=== PATIENT | female | born 1940 | race Caucasian/White ===

== ENCOUNTER → 2018-01-31 01:44 | Outpatient (CLI) | payer MEDICARE, OTHER, SELFPAY ==
[2018-01-31 11:23] LABS: ALT 26 U/L (12-78); AST 22 U/L (15-37); Albumin 3.6 g/dL (3.4-5.0); Alkaline Phosphatase 98 U/L (46-116); BUN 21 mg/dL (7-18); Bilirubin, Total 0.8 mg/dL (0.2-1.0); CREATININE 1.15 mg/dL (0.55-1.02); Calcium 8.8 mg/dL (8.5-10.1); Chloride 104 mmol/L (98-107); Cholesterol 189 mg/dL (50-200); Estimated GFR 45.76 (mL/min/1.73m2); Glucose 95 mg/dL (70-100); HDL Cholesterol 56 mg/dL (40-60); LDL CHOLESTEROL 124 mg/dL (<100); Potassium 4.8 mmol/L (3.5-5.1); Sodium 139 mmol/L (136-145); Total Protein 6.8 g/dL (6.4-8.2); Triglyceride 78 mg/dL (30-150)
[2018-02-01 10:53] LABS: CA 125 4 U/mL (0-30)
== END ==
DX: E78.5 Hyperlipidemia, unspecified (principal); I10 Essential (primary) hypertension; K21.9 Gastro-esophageal reflux disease without esophagitis; C56.9 Malignant neoplasm of unspecified ovary
CPT/HCPCS: 36415; 80053; 80061; 83721; 86304

== ENCOUNTER 2019-02-05 01:25 | Outpatient (CLI) | payer MEDICARE, OTHER, SELFPAY ==
[2019-02-05 11:06] LABS: ALT 27 U/L (14-59); AST 23 U/L (15-37); Albumin 3.7 g/dL (3.4-5.0); Alkaline Phosphatase 103 U/L (46-116); Anion Gap 8.8 mmol/L (3-11); BUN 21 mg/dL (7-18); Bilirubin, Total 0.8 mg/dL (0.2-1.0); CO2 27.2 mmol/L (21.0-32.0); CREATININE 1.02 mg/dL (0.55-1.02); Calculated LDL 128 mg/dL; Chloride 105 mmol/L (98-107); Cholesterol 201 mg/dL (50-200); Estimated GFR 52.41 (mL/min/1.73m2); Glucose 98 mg/dL (70-100); HDL Cholesterol 55 mg/dL (40-60); Potassium 4.8 mmol/L (3.5-5.1); Sodium 141 mmol/L (136-145); Triglyceride 90 mg/dL (30-150)
[2019-02-06 11:12] LABS: CA 125 5 U/mL (0-30)
== END 2019-02-05 01:45 ==
DX: C56.9 Malignant neoplasm of unspecified ovary (principal); E78.5 Hyperlipidemia, unspecified; I10 Essential (primary) hypertension; Z98.890 Other specified postprocedural states
CPT/HCPCS: 36415; 80053; 80061; 83721; 86304

== ENCOUNTER 2019-02-22 01:29 | Outpatient (CLI) | payer MEDICARE, OTHER, SELFPAY ==
--- NOTE | 2019-02-22 15:19 | DI.MAMMO_ITS ---
SYMPTOMS/DIAGNOSIS: SCREENING, Z12.39 BILATERAL SCREENING MAMMOGRAM: Mammograms were interpreted according to the usual protocol including computer analysis with CAD system, tomosynthesis and C view imaging. Comparison is made with exams from 2013 through 2018. The breasts are composed of heterogeneously dense fibroglandular tissue, breast density category C. No suspicious masses or suspicious microcalcifications are seen. There has been no significant change. IMPRESSION: Category 1, negative mammogram. Yearly screening mammography is recommended. [facility] ASSESSMENT OF FINDINGS: Negative. Category 1. Patient will receive a letter notifying them of these results. Bi-RADS category C. The breasts are heterogeneously dense, which may obscure small masses.
== END 2019-02-22 01:49 ==
DX: Z12.31 Encounter for screening mammogram for malignant neoplasm of breast (principal)
CPT/HCPCS: 77063; 77067

== ENCOUNTER 2021-10-05 05:51 | Outpatient (CLI) | payer MEDICARE, SELFPAY ==
[2021-10-05 08:53] LABS: ALT 34 U/L (14-59); AST 24 U/L (15-37); Albumin 3.9 g/dL (3.4-5.0); Alkaline Phosphatase 102 U/L (46-116); Anion Gap 8.6 mmol/L (3-11); BUN 22 mg/dL (7-18); Bilirubin, Total 0.9 mg/dL (0.2-1.0); CO2 27.4 mmol/L (21.0-32.0); Calcium 9.3 mg/dL (8.5-10.1); Calculated LDL 118 mg/dL (<100); Chloride 103 mmol/L (98-107); Cholesterol 195 mg/dL (<200); Estimated GFR 53.21 (mL/min/1.73m2); Glucose 150 mg/dL (74-106); HDL Cholesterol 57 mg/dL (40-60); Potassium 4.3 mmol/L (3.5-5.1); Sodium 139 mmol/L (136-145); Total Protein 7.4 g/dL (6.4-8.2); Triglyceride 102 mg/dL (<150)
== END 2021-10-05 05:52 | disposition home or self-care (01) ==
LOC: LBO 05:53
DX: E78.5 Hyperlipidemia, unspecified (principal); I10 Essential (primary) hypertension
CPT/HCPCS: 36415; 80053; 80061

== ENCOUNTER 2022-12-16 01:37 | Outpatient (CLI) | payer MEDICARE, SELFPAY ==
[2022-12-16 13:03] LABS: ALT 25 U/L (14-59); AST 26 U/L (15-37); Albumin 3.7 g/dL (3.4-5.0); Alkaline Phosphatase 87 U/L (46-116); Anion Gap 8.5 mmol/L (3-11); BUN 24 mg/dL (7-18); CO2 27.5 mmol/L (21.0-32.0); CREATININE 1.1 mg/dL (0.55-1.02); Calcium 9.2 mg/dL (8.5-10.1); Calculated LDL 112 mg/dL (<100); Chloride 105 mmol/L (98-107); Cholesterol 187 mg/dL (<200); Estimated GFR 50.17 (mL/min/1.73m2); Glucose 138 mg/dL (74-106); HDL Cholesterol 56 mg/dL (40-60); Potassium 4.8 mmol/L (3.5-5.1); Sodium 141 mmol/L (136-145); Total Protein 7.4 g/dL (6.4-8.2); Triglyceride 98 mg/dL (<150)
[2022-12-16 13:10] LABS: Hemoglobin A1C 6.5 % (<5.7)
== END 2022-12-16 01:38 | disposition home or self-care (01) ==
LOC: LOS 01:38
PROVIDERS: PCP Nurse Practitioner Family; Visit Provider Nurse Practitioner Family
DX: R73.01 Impaired fasting glucose (principal); E78.2 Mixed hyperlipidemia
CPT/HCPCS: 36415; 80053; 80061; 83036

== ENCOUNTER 2023-08-01 12:05 | Observation (INO) | payer MEDICARE, SELFPAY ==
[2023-08-01] VITALS (36 sets, daily range): BP systolic 174–249; BP diastolic 83–150; PULSE 69–91; RESP 12–51; TEMP 36.6–36.8; O2SAT 94–98
--- NOTE | 2023-08-01 12:00 | RT.EKG_ITS ---
APPROVED REPORT Exam: Resting [facility] E HR:74 bpm ECG Measurements Heart Rate 74 AXIS IA 184 P 72 QRSd 108 QRS 75 QT 392 T 79 QTc 435 Conclusion Sinus rhythm...normal P axis, V-rate 60- 99 Low voltage, precordial leads...precordial leads <1.0mV
[2023-08-01 12:36] LABS: Abs Immature Grans 0.03 10^3/uL (0.0-0.06); Absolute Basophil Count 0.05 10^3/uL (0.0-0.2); Absolute Eosinophil Count 0.11 10^3/uL (0.0-0.7); Absolute Lymphocyte Count 1.24 10^3/uL (1.2-3.4); Absolute Monocyte Count 0.48 10^3/uL (0.1-0.8); Absolute Neutrophil Count 6.26 10^3/uL (1.2-6.7); Basophils % 0.6; Eosinophils % 1.3; HCT 39.4 % (36.0-46.0); Immature Grans % 0.4; Lymphocytes % 15.2; MCH 30.4 pg (27.0-33.0); MCV 92 fL (80-95); MPV 10.4 fL (8.0-11.0); Monocytes % 5.9; Neutrophils % 76.6; Platelet Count 238 10^3/uL (130-400); RBC 4.27 10^6/uL (3.93-5.22); RDW 13.4 % (11.7-14.6); RDW-SD 45.6 fL; WBC 8.17 10^3/uL (4.4-10.8)
--- NOTE | 2023-08-01 13:00 | W.ED.GENAD ---
HPI General Mode of arrival: ambulatory. Date/Time Provider Initiated Documentation: 08/01/23 12:25. Limitations to Documentation: no limitations. Information obtained by: patient. HPI Narrative: 83-year-old female with history of hypertension and anxiety, presents with chief complaint of elevated blood pressure. Patient notes she checks her blood pressure regularly and today noted it was significantly elevated with a systolic over 200. She notes associated feeling of lightheadedness. She denies chest pain, pressure or shortness of breath. She denies numbness or tingling. She does note some mild head discomfort which she attributes to the elevated blood pressure. She has no headache at this time. No visual changes. Patient has had no recent medication changes. She has been taking her lisinopril and atenolol as prescribed. Related Data Home Medications Medication Instructions Recorded Confirmed Aspirin 81 mg PO DAILY 09/06/12 08/01/23 cyanocobalamin (vitamin B-12) 500 0.5 tab PO DAILY 09/06/12 08/01/23 mcg tablet (Vitamin B-12) multivitamin (Daily Multi-Vitamin 1 tab PO DAILY 09/06/12 08/01/23 tablet) magnesium oxide 1 tab PO DAILY 01/12/16 08/01/23 lisinopril 20 mg tablet See Rx Instructions .Route 05/01/23 08/01/23 .COMPLEX #90 tabs omeprazole 20 mg tablet,delayed 20 mg PO DAILY #90 tab-caps 05/31/23 08/01/23 release atenolol 50 mg tablet See Rx Instructions .Route 07/21/23 08/01/23 .COMPLEX #90 tabs Previous Rx's Medication Instructions Recorded lisinopril 20 mg tablet See Rx Instructions .Route 05/01/23 .COMPLEX #90 tabs omeprazole 20 mg tablet,delayed 20 mg PO DAILY #90 tab-caps 05/31/23 release atenolol 50 mg tablet See Rx Instructions .Route 07/21/23 .COMPLEX #90 tabs Allergies Allergy/AdvReac Type Severity Reaction Status Date / Time Tetracyclines Allergy Unknown Other (See Verified 08/01/23 12:15 Comment) General Stated Complaint: Dizzy/Sync AMBER: 3 Review of Systems All systems reviewed & are unremarkable except as noted in HPI and below Constitutional Constitutional: Denies fever(s) Neurologic Neurologic: Reports as per HPI Exam Const General: cooperative and no acute distress [facility] Head: normocephalic and atraumatic Mouth: moist mucous membranes Eyes Conjunctivae: normal conjunctivae Sclera: normal sclerae Neck Neck: trachea midline Resp Auscultation: clear to auscultation bilaterally, no rales, no rhonchi and no wheezes Cardio Rate: regular rate and not tachycardic Rhythm: regular rhythm GI Palpation: soft, not firm, no guarding, no masses, not rigid and nontender Skin General skin exam: no rashes or lesions noted Neuro General: patient alert, patient awake and tone normal Extrem General: no edema Psych Appearance: grossly normal Mental Status: mental status grossly normal Course Vital Signs Vital signs: Vital Signs Temperature 36.6 C 08/01/23 12:05 Pulse 79 08/01/23 12:05 Respiratory Rate 18 08/01/23 12:05 Blood Pressure 249/93 H 08/01/23 12:05 Pulse Oximetry 95 08/01/23 12:05 Temperature 36.6 C 08/01/23 12:05 Temperature Source Temporal Artery Scan 08/01/23 12:05 Pulse 79 08/01/23 12:05 Respiratory Rate 18 08/01/23 12:21 Respiratory Effort Normal, Non-Labored 08/01/23 12:21 Respiratory Depth Normal 08/01/23 12:21 Respiratory Pattern Normal 08/01/23 12:21 Blood Pressure 249/93 H 08/01/23 12:05 Pulse Oximetry 95 08/01/23 12:05 Lab/Test Results Lab/Test Results: Laboratory Tests Range/Units 08/01/23 12:20 WBC (4.4-10.8) 10^3/uL 8.17 RBC (3.93-5.22) 10^6/uL 4.27 Hgb (11.2-15.7) g/dL 13.0 Hct (36.0-46.0) % 39.4 MCV (80-95) fL 92 MCH (27.0-33.0) pg 30.4 MCHC (32.0-36.0) % 33.0 RDW (11.7-14.6) % 13.4 Plt Count (130-400) 10^3/uL 238 MPV (8.0-11.0) fL 10.4 Immature Gran % 0.4 Neutrophils % 76.6 Lymphocytes % 15.2 Monocytes % 5.9 Eosinophils % 1.3 Basophils % 0.6 Nucleated RBC % (0.0-0.3) % 0.0 Absolute Neutrophils (1.2-6.7) 10^3/uL 6.26 Absolute Lymphocytes (1.2-3.4) 10^3/uL 1.24 Absolute Monocytes (0.1-0.8) 10^3/uL 0.48 Absolute Eosinophils (0.0-0.7) 10^3/uL 0.11 Absolute Basophils (0.0-0.2) 10^3/uL 0.05 TSH Cancelled Medical Decision Making 1300??83-year-old female with history of anxiety and hypertension, here with elevated blood pressure today. Patient has been compliant with her antihypertensive regimen. She has had some dizziness associated with the elevated blood pressure. She has no chest pain or shortness of breath. She has had some headache but does not currently. No visual changes. Patient is significantly hypertensive here. Screening EKG was reviewed and interpreted by me: Please report, sinus rhythm 74 bpm, normal axis, subtle ST depressions noted laterally V4 to V6. These were present on prior EKG. Plan to check renal function. --Labs reviewed and normal renal function. I spoke with the patient's primary care physician who notes unclear as to why patient is on atenolol specifically. I will initiate treatment with metoprolol and give additional dose of lisinopril. -- Patient reassessed and does note some anxiety. I will give Ativan 0.5 mg IV. --Patient reassessed remains hypertensive. She continues to have intermittent dizziness. Labetalol 20 mg IV administered. 1600 --patient reassessed: Patient notes dizziness has improved. Patient seems mildly confused. She remains severely hypertensive despite labetalol and oral medications and anxiolytic. I will obtain CT of the head. Plan for admission to treat for hypertensive urgency. 1748 --chest x-ray interpreted by radiology: No acute pulmonary findings. CT of the head interpreted by radiology: No acute intracranial process. Patient remains hypertensive. I will give hydralazine 10 mg IV. I spoke with on-call hospitalist, Dr. Carmona, discussed ED presentation and course, she will admit the patient. Quality:SDOH Health Related Social Needs: No Data to Display PFSH All Active Problems (Updated 08/01/23 @ 17:49 by Rony Lynch MD) Hypertensive urgency (Acute) Hypertensive urgency (Acute) Anxiety (Chronic) Diabetes (Chronic) Vitamin D deficiency (Acute) Grief counseling (Acute) Advanced directives, counseling/discussion (Acute) 09/2021 - States she has. We do not have on file. She is unable to articulate what is in her directive. Has been asked on numerous occasions to bring in a copy. States Maribel Toledo is her person Essential hypertension (Chronic 09/27/13) Gastroesophageal reflux disease (Chronic 10/01/12) Neg. 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 Paternal Grandfather , 75 Asthma Maternal Grandmother , 54 No problems noted. Paternal Grandmother , 62 Stroke Brother No problems noted. Son No problems noted. Son No problems noted. Daughter No problems noted. Daughter No problems noted. Social History Smoking/Tobacco Use Status: Never Second Hand Exposure: No Smoking risk assessment performed?: Yes Alcohol Intake: current Alcohol Intake frequency: a few times a month Alcohol type: hard liquor Drug use: Never Substance use type: does not use Counseling provided: none Caregiver/Support person: No Household members: spouse Housing: house Communication Needs: None Do you need help understanding health information?: Rarely Pets and animals: Yes Pets and animals: cat(s) Sexually active: No Do you think of yourself as: straight/heterosexual Current gender identity: female What is your relationship status?: How often do you talk on the phone with friends or family?: three or more times per week How often do you get together with friends or relatives?: once per week How often do you attend episcopalian or confucianism services?: decline to answer Do you belong to any clubs or organized social groups?: no Panel score (0-1 are the most socially isolated patients): 2 What type of physical activity do you participate in: other Details: chores Duration: 60-90 minutes/day Frequency: daily Niurka/Mu-Ism: Restorationism Special niurka needs: No Seatbelt use: always Drive intox or ride w/intox patient transportation driver: No Do you feel safe at home: Yes Do you feel safe in your relationship?: Yes Additional Social history: been for 63years lives with . Sony RN 08/01/23 Discharge Plan Disposition Patient Disposition: Admit to [facility] Condition: Serious Discharge Details Chief Complaint: Dizzy/Sync Clinical Impression: Hypertensive urgency Primary Care Provider: Brannon Rico ED Provider: Rony Lynch Home Meds and New Rx's Prescriptions: No Action ASPIRIN 81 MG tablet 81 mg PO DAILY multivitamin [Daily Multi-Vitamin] 1 EACH tablet 1 tab PO DAILY cyanocobalamin (vitamin B-12) [Vitamin B-12] 500 MCG tablet 0.5 tab PO DAILY magnesium oxide 250 MG tablet 1 tab PO DAILY lisinopril 20 mg tablet See Rx Instructions .ROUTE .COMPLEX Qty: 90 4RF Dose Instruction: TAKE 1 TABLET BY MOUTH DAILY Rx Instructions: TAKE 1 TABLET BY MOUTH DAILY omeprazole 20 mg tablet,delayed release (DR/EC) 20 mg PO DAILY Qty: 90 4RF atenolol 50 mg tablet See Rx Instructions .ROUTE .COMPLEX Qty: 90 3RF Dose Instruction: TAKE 1 TABLET BY MOUTH DAILY Rx Instructions: TAKE 1 TABLET BY MOUTH DAILY
[2023-08-01 13:04] LABS: ALT 30 U/L (14-59); AST 22 U/L (15-37); Albumin 3.8 g/dL (3.4-5.0); Alkaline Phosphatase 105 U/L (46-116); Anion Gap 11.1 mmol/L (3-11); BUN 22 mg/dL (7-18); Bilirubin, Total 0.7 mg/dL (0.2-1.0); CO2 25.9 mmol/L (21.0-32.0); Calcium 9.7 mg/dL (8.5-10.1); Chloride 104 mmol/L (98-107); Glucose 179 mg/dL (74-106); Magnesium 1.8 mg/dL (1.8-2.4); Potassium 3.8 mmol/L (3.5-5.1); Sodium 141 mmol/L (136-145); TSH (W/Ref FT4) 2.59 uIU/mL (0.36-3.74); Total Protein 7.8 g/dL (6.4-8.2); Troponin I < 50 ng/L (< or =60)
[2023-08-01] MEDS: Metoprolol 25 MG TAB PO (13:31)
[2023-08-01] MEDS: Lisinopril 20 MG TAB PO (13:38)
[2023-08-01] MEDS: LORazepam 2 MG/ML VIAL 0.5 MG IVP (14:27)
[2023-08-01] MEDS: Labetalol 100 MG/20 ML VIAL 20 MG IVP (15:13)
--- NOTE | 2023-08-01 16:00 | DI.RAD_ITS ---
Exam(s) XR CHEST 1V IN DI DEPT EXAM: XR CHEST 1V IN DI DEPT CLINICAL HISTORY: htn, dizzy TECHNIQUE: 2D digital imaging was performed of the chest. One image was obtained. An AP view was ob tained. COMPARISON: No exams were available for comparison FINDINGS: MEDIASTINUM: Normal. HEART: Normal. PULMONARY VASCULATURE: Normal. LUNGS: Clear. PLEURAL SPACE: No pleural effusion or pneumothorax. BONE:Within normal limits for the patient's age. OTHER FINDINGS:Normal. IMPRESSION: No acute pulmonary findings. DATA REPOSITORY: RADIATION DOSE DELIVERED:
--- NOTE | 2023-08-01 16:00 | DI.CT_ITS ---
Exam(s) CT HEAD WO EXAM: CT HEAD WO CLINICAL HISTORY: confusion, hypertension. TECHNIQUE: Imaging Protocol: Axial computed tomography images with coronal and sagittal reformatted images were created and reviewed COMPARISON: No exams were available for comparison FINDINGS: Ventricles and Extra axial spaces: Normal in size and morphology for the patient's age. Hemorrhage: None. 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 There are areas of decrea sed attenuation in the white matter most consistent with small vessel ischemic disease. There is no mass effect. Midline shift: None. Brainstem/Cerebellum: Normal. Calvarium: Normal. Visualized Paranasal sinuses/Mastoids: Clear. Soft Tissues: Unremarkable. IMPRESSION: No acute intracranial process. RADIATION DOSE DELIVERED: 656.27mGy.cm Total DLP DATA REPOSITORY: All CT scans at this facility are submitted to the National Radiology Data Registry (NRDR) Dose Index Registry (DIR) with the [employer] (ACR). RADIATION OPTIMIZATION: All CT scans at this facility use at least one of these dose optimization te chniques: automated exposure control; mA and/or kV adjustment per patient size (includes targeted exa ms where dose is matched to clinical indication); or iterative reconstruction.
[2023-08-01 16:10] LABS: Troponin I < 50 ng/L (< or =60)
--- NOTE | 2023-08-01 17:30 | RT.EKG_ITS ---
APPROVED REPORT Exam: Resting ECG Reason for Exam: Back Pain Patient Location: E HR:82 bpm ECG Measurements Heart Rate 82 AXIS HI 189 P 71 QRSd 108 QRS 63 QT 406 T 35 QTc 473 Conclusion Sinus rhythm...normal P axis, V-rate 60- 99 Probable left atrial enlargement...P >50mS, <-0.10mV V1 Low voltage, precordial leads...precordial leads <1.0mV
--- NOTE | 2023-08-01 17:41 | W.PM.HP.N ---
Date of service: 08/01/23 Time of Service: 17:41 Assessment and Plan Assessment and plan (1) Hypertensive urgency: Status: Acute Assessment and plan: Referred to observation. Will monitor blood pressure closely overnight. Lisinopril dose has been increased from 20 mg to 40 mg daily she is receiving IV hydralazine in the emergency department prior to admission. Will add amlodipine 5 mg daily continue atenolol as previously scheduled but consider increasing that dose also if needed. (2) Anxiety: Status: Chronic Assessment and plan: Received Ativan in the emergency department we will just continue to monitor (3) Gastroesophageal reflux disease: Assessment and plan: Stable continue omeprazole Qualifiers: Esophagitis presence: without esophagitis Qualified Code(s): K21.9 - Gastro-esophageal reflux disease without esophagitis (4) Diabetes: Assessment and plan: Diet controlled with a hemoglobin A1c of 6.5 PCP following and made recommended dietary changes including weight loss will defer further outpatient management of her diabetes to her primary care provider discussed with DR mckeon (5) Hypertensive urgency: Status: Acute History of Present Illness History of Present Illness Chief Complaint: elevated blood pressure Narrative: This is an 83-year-old female patient with a history of hypertension and anxiety who presented to the emergency department with complaints of elevated blood pressure. She reports today her systolic was over 200 and that she was feeling lightheaded she did not have any chest pain shortness of breath numbness or tingling. She was reported to have some confusion. She has been taking her medications as prescribed. Of note in her last office visit her blood pressure was also noted to be elevated at 189/95. Her workup in the emergency department showed normal EKG with no ischemic changes, troponin negative normal head CT with no acute intracranial process no electrolyte abnormalities creatinine 1.0 with a BUN of 22 liver functions within normal limits TSH 2.59 she was given multiple medications to help try the bring her blood pressure down including Metroprolol tartrate labetalol and extra dose of lisinopril, Ativan with no significant improvement in her symptoms. After receiving all those medications blood pressure still 174/84. Hospitalist service was requested to admit her observation for hypertensive urgency in the setting of poorly controlled blood pressure and confusion. Review of Systems All systems reviewed & are unremarkable except as noted in HPI and below PFSH All Active Problems (Updated 08/04/23 @ 00:04 by NATHANAEL SHIPLEY) Hypertensive urgency (Acute) Hypertensive urgency (Acute) Anxiety (Chronic) Vitamin D deficiency (Acute) Grief counseling (Acute) Advanced directives, counseling/discussion (Acute) 09/2021 - States she has. We do not have on file. She is unable to articulate what is in her directive. Has been asked on numerous occasions to bring in a copy. 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 Paternal Grandfather , 75 Asthma Maternal Grandmother , 54 No problems noted. Paternal Grandmother , 62 Stroke Brother No problems noted. Son No problems noted. Son No problems noted. Daughter No problems noted. Daughter No problems noted. Social History Smoking/Tobacco Use Status: Never Second Hand Exposure: No Smoking risk assessment performed?: Yes Alcohol Intake: current Alcohol Intake frequency: a few times a month Alcohol type: hard liquor Drug use: Never Substance use type: does not use Counseling provided: none Caregiver/Support person: No Household members: spouse Housing: house Communication Needs: None Do you need help understanding health information?: Rarely Pets and animals: Yes Pets and animals: cat(s) Sexually active: No Do you think of yourself as: straight/heterosexual Current gender identity: female What is your relationship status?: How often do you talk on the phone with friends or family?: three or more times per week How often do you get together with friends or relatives?: once per week How often do you attend pentecostalism or restorationism services?: decline to answer Do you belong to any clubs or organized social groups?: no Panel score (0-1 are the most socially isolated patients): 2 What type of physical activity do you participate in: other Details: chores Duration: 60-90 minutes/day Frequency: daily Niurka/Catholic: Zoroastrianism Special niurka needs: No Seatbelt use: always Drive intox 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 Sony RN 08/01/23 Meds Allergies and Home Medications Allergies Allergy/AdvReac Type Severity Reaction Status Date / Time Tetracyclines Allergy Unknown Other (See Verified 08/01/23 12:15 Comment) Home Medications Medication Instructions Recorded Confirmed Type Aspirin 81 mg PO DAILY 09/06/12 08/01/23 History cyanocobalamin (vitamin B-12) 500 0.5 tab PO DAILY 09/06/12 08/01/23 History mcg tablet (Vitamin B-12) multivitamin (Daily Multi-Vitamin 1 tab PO DAILY 09/06/12 08/01/23 History tablet) magnesium oxide 1 tab PO DAILY 01/12/16 08/01/23 History atenolol 50 mg tablet See Rx Instructions .Route 07/21/23 08/01/23 Rx .COMPLEX #90 tabs omeprazole 20 mg capsule,delayed 20 mg PO DAILY 08/02/23 08/02/23 History release amlodipine 5 mg tablet 5 mg PO DAILY #30 tabs 08/03/23 Rx lisinopril 20 mg tablet 40 mg (2 x 20 mg) PO DAILY #60 tabs 08/03/23 Rx spironolactone 25 mg tablet 25 mg PO DAILY #30 tabs 08/03/23 Rx Exam Const General: cooperative, healthy appearing, comfortable and no acute distress Nutritional Appearance: average body habitus Orientation: alert and awake HENMO Head: normal to inspection, normocephalic and atraumatic Face and sinus: normal facial exam Mouth: oral mucosae normal Chest Chest: normal inspection of the chest Resp Effort & Inspection: normal respiratory effort Auscultation: clear to auscultation bilaterally Cardio Rate: regular rate Rhythm: regular rhythm GI Inspection: normal to inspection Palpation: soft Neuro General: patient alert, patient awake and oriented (suspect mild cognitive impairment) Patient Orientation: Person and Place Sensory Exam: no sensory deficits noted Extrem General: pedal edema (at baseline) Results Labs 08/03/23 05:43 08/03/23 05:43 Labs: Laboratory Results - last 24 hr 08/01/23 08/01/23 08/01/23 12:00 12:20 12:20 WBC 8.17 RBC 4.27 Hgb 13.0 Hct 39.4 MCV 92 MCH 30.4 MCHC 33.0 RDW 13.4 Plt Count 238 MPV 10.4 Immature Gran % 0.4 Neutrophils % 76.6 Lymphocytes % 15.2 Monocytes % 5.9 Eosinophils % 1.3 Basophils % 0.6 Nucleated RBC % 0.0 Absolute Neutrophils 6.26 Absolute Lymphocytes 1.24 Absolute Monocytes 0.48 Absolute Eosinophils 0.11 Absolute Basophils 0.05 APTT 23.0 L Sodium 141 Potassium 3.8 Chloride 104 Carbon Dioxide 25.9 Anion Gap 11.1 H BUN 22 H Creatinine 1.0 Est GFR (CKD-EPI 2020) 55.90 Glucose 179 H Calcium 9.7 Magnesium 1.8 Total Bilirubin 0.7 AST 22 ALT 30 Alkaline Phosphatase 105 Troponin I < 50 Total Protein 7.8 Albumin 3.8 TSH 2.59 Cancelled 08/01/23 15:45 WBC RBC Hgb Hct MCV MCH MCHC RDW Plt Count MPV Immature Gran % Neutrophils % Lymphocytes % Monocytes % Eosinophils % Basophils % Nucleated RBC % Absolute Neutrophils Absolute Lymphocytes Absolute Monocytes Absolute Eosinophils Absolute Basophils APTT Sodium Potassium Chloride Carbon Dioxide Anion Gap BUN Creatinine Est GFR (CKD-EPI 2020) Glucose Calcium Magnesium Total Bilirubin AST ALT Alkaline Phosphatase Troponin I < 50 Total Protein Albumin TSH Last Vital Signs Temp 36.6 C 08/01/23 12:05 Pulse 77 08/01/23 15:20 Resp 51 H 08/01/23 15:20 BP 174/84 H 08/01/23 15:20 Pulse Ox 98 08/01/23 15:20 Time Spent Time spent with Patient: 40-54 minutes Time was spent: preparing to see the patient(eg.review tests), obtaining and/or reviewing separately otained hiistory, ordering medications,tests, procedures, indepentently interpreting results and counseling the patient
[2023-08-01] MEDS: hydrALAZINE 20 MG/ML VIAL 10 MG IVP (17:42)
[2023-08-01] MEDS: amLODIPine 5 MG TAB PO (17:56)
--- NOTE | 2023-08-01 18:45 | NUR.NOTE ---
Nursing Note: Patient arrived to the unit 18:30 and denies discomfort, pain, and dizziness. Patient reported feeling well and was eating a sandwich. Patient was accompanied by a visitor. Oriented the patient to the room, safety precautions, and the call choe.
[2023-08-01] MEDS: Acetaminophen 325 MG TAB 650 MG PO (19:52)
[2023-08-01] MEDS: Normal Saline Flush 10 ML SYR IVP (20:09)
[2023-08-01] MEDS: Melatonin 3 MG TAB PO (21:23)
[2023-08-02] VITALS (11 sets, daily range): BP systolic 163–206; BP diastolic 77–102; PULSE 72–81; RESP 16–20; TEMP 36.4–37.1; O2SAT 93–97
[2023-08-02 06:50] LABS: Abs Immature Grans 0.03 10^3/uL (0.0-0.06); Absolute Basophil Count 0.05 10^3/uL (0.0-0.2); Absolute Eosinophil Count 0.13 10^3/uL (0.0-0.7); Absolute Lymphocyte Count 1.57 10^3/uL (1.2-3.4); Absolute Neutrophil Count 5.72 10^3/uL (1.2-6.7); Basophils % 0.6; Eosinophils % 1.6; HCT 36.2 % (36.0-46.0); HGB 11.8 g/dL (11.2-15.7); Immature Grans % 0.4; Lymphocytes % 19.4; MCHC 32.6 % (32.0-36.0); MCV 92 fL (80-95); MPV 10.3 fL (8.0-11.0); Monocytes % 7.4; Neutrophils % 70.6; Platelet Count 220 10^3/uL (130-400); RBC 3.93 10^6/uL (3.93-5.22); RDW 13.4 % (11.7-14.6); RDW-SD 45.7 fL
[2023-08-02 07:12] LABS: Anion Gap 9.9 mmol/L (3-11); BUN 18 mg/dL (7-18); CO2 25.1 mmol/L (21.0-32.0); CREATININE 0.9 mg/dL (0.55-1.02); Calcium 9.5 mg/dL (8.5-10.1); Chloride 106 mmol/L (98-107); Estimated GFR 63.43 (mL/min/1.73m2); Glucose 138 mg/dL (74-106); Sodium 141 mmol/L (136-145)
[2023-08-02] MEDS: amLODIPine 5 MG TAB PO (07:42)
[2023-08-02] MEDS: Lisinopril 20 MG TAB 40 MG PO (07:43)
[2023-08-02] MEDS: Aspirin 81 MG CHEW PO (07:43)
[2023-08-02] MEDS: Atenolol 50 MG TAB PO (07:44)
[2023-08-02] MEDS: Omeprazole 20 MG CAPCR PO (07:44)
[2023-08-02] MEDS: Multivitamin TAB 1 TAB PO (07:44)
[2023-08-02] MEDS: Cyanocobalamin 500 MCG TAB 250 MCG PO (07:44)
[2023-08-02] MEDS: Enoxaparin 40 MG/0.4 ML SYR SC (07:46)
[2023-08-02] MEDS: Normal Saline Flush 10 ML SYR IVP ×2 (07:46→21:08)
--- NOTE | 2023-08-02 09:09 | PDOC.CMIN ---
Date of service: 08/02/23 Time of Service: 09:09 Care Management Initial Assmt Initial Assessment REASON FOR HOSPITALIZATION:: hypertensive emergency PREVIOUS FUNCTIONAL STATUS/SOCIAL/FAMILY SUPPORTS:: Pema lives in a large single family home in [place], [place] with her Sher. They have 4 children, 6 grandchildren and 8 great grandchildren, most of whom live in [place]. Pema does not receive any community services nor does she normally use any assistive devices for ambulation. She is currently using a cane as she gets dizzy when her blood pressure is really high. CURRENT FUNCTIONAL STATUS:: Pema was sitting up in a chair when CM met with her. She was pleasant and agreeable to conversation. Pema stated that she is feeling better than when she arrived yesterday although her blood pressure remains elevated above her baseline. She informed CM that when it is really high she gets a bad headache and can be light headed or dizzy. Pema does not anticipate needing any new services at discharge. ADVANCE DIRECTIVES:: On file. Sher CHRISTOPHER Has patient been provided with info about the portal/API?: Yes Did the patient sign up for the portal?: No CODE STATUS:: Full Code INSURANCE COVERAGE / FINANCIAL ISSUES:: Medicare worth CURRENT HOME/COMMUNITY SERVICES/EQUIPMENT:: cane PRIMARY CARE PHYSICIAN:: Brannon Powell POTENTIAL DISCHARGE NEEDS:: follow up with PCP and plan of care PATIENT/FAMILY EDUCATION NEEDS:: +Review of discharge instructions. activity, limitations, follow up plan, discuss Ask Me Three TRANSPORTATION:: via private vehicle PLAN:: Anticipate Pema will be discharged home with no new services. She will follow up with her community providers and plan of care and transport with family. CM will follow and continue to assess for discharge needs. PFSH All Active Problems (Updated 08/01/23 @ 17:49 by Rony Lynch MD) Hypertensive urgency (Acute) Hypertensive urgency (Acute) Anxiety (Chronic) Diabetes (Chronic) Vitamin D deficiency (Acute) Grief counseling (Acute) Advanced directives, counseling/discussion (Acute) 09/2021 - States she has. We do not have on file. She is unable to articulate what is in her directive. Has been asked on numerous occasions to bring in a copy. States Maribel Toledo is her person Essential hypertension (Chronic 09/27/13) Gastroesophageal reflux disease (Chronic 10/01/12) Neg. 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 Paternal Grandfather , 75 Asthma Maternal Grandmother , 54 No problems noted. Paternal Grandmother , 62 Stroke Brother No problems noted. Son No problems noted. Son No problems noted. Daughter No problems noted. Daughter No problems noted. Social History Smoking/Tobacco Use Status: Never Second Hand Exposure: No Smoking risk assessment performed?: Yes Alcohol Intake: current Alcohol Intake frequency: a few times a month Alcohol type: hard liquor Drug use: Never Substance use type: does not use Counseling provided: none Caregiver/Support person: No Household members: spouse Housing: house Communication Needs: None Do you need help understanding health information?: Rarely Pets and animals: Yes Pets and animals: cat(s) Sexually active: No Do you think of yourself as: straight/heterosexual Current gender identity: female What is your relationship status?: How often do you talk on the phone with friends or family?: three or more times per week How often do you get together with friends or relatives?: once per week How often do you attend mosque or orthodoxy services?: decline to answer Do you belong to any clubs or organized social groups?: no Panel score (0-1 are the most socially isolated patients): 2 What type of physical activity do you participate in: other Details: chores Duration: 60-90 minutes/day Frequency: daily Niurka/Methodist: Protestant Special niurka needs: No Seatbelt use: always Drive intox or ride w/intox cdl truck driver: No Do you feel safe at home: Yes Do you feel safe in your relationship?: Yes Additional Social history: been for 63years lives with . Sony RN 08/01/23 SDOH(Care Management) Screening Will the Patient Participate in the Screening?: Yes Do you worry about having a steady place to live?: no In the past 12 months, have you had to go without electric, gas, oil or water in your home?: no Have you or anyone in your house had to go without enough food to eat?: no Has lack of transportation kept you from medical appointments or from doing things needed for daily living?: no Has anyone in your support network made you feel unsafe for any reason?: no
--- NOTE | 2023-08-02 11:18 | PGE_ITS ---
Date of Service Date of service: 08/02/23 Time of Service: 09:15 Assessment and Plan Assessment and plan (1) Hypertensive urgency: Status: Acute Assessment and plan: Admitted for observation in the setting of HTN urgency, treated with IV hydralazine and IV labetolol in the ED Continue increased dose of Lisinopril 40 mg PO daily Continue amlodipine 5 mg PO daily initiated yesterday Continue atenolol home dosing consider increasing that dose also if needed. Considering spironolactone VS clonidine patch in the setting of HTN and anxiety VS : Spironolactone 25 mg PO initiated, evaluating response; and then daily if positive response Patient mentioned discussion with ED provider about changing her beta bryant from atenolol to metoprolol this could be address by her PCP; worth considering increasing atenolol dose before adding new drugs (2) Anxiety: Status: Chronic Assessment and plan: Received Ativan in the emergency department continue PRN Lorazepam if needed (3) Gastroesophageal reflux disease: Status: Chronic Assessment and plan: continue omeprazole Qualifiers: Esophagitis presence: without esophagitis Qualified Code(s): K21.9 - Gastro-esophageal reflux disease without esophagitis (4) Diabetes: Status: Chronic Assessment and plan: Hemoglobin A1c of 6.5; diet controlled and PCP following and made recommended dietary changes including weight loss. Further outpatient management of her diabetes as per PCP discussed with Dr. Carmona (5) On deep vein thrombosis (DVT) prophylaxis: Status: Acute Assessment and plan: On lovenox SC Subjective Subjective Interval history since last seen: Patient reports sleeping well, eating and drinking well, voiding without difficulty and no constipation. Patient denies headache, lightheadedness, change in vision, shortness of breath, cough, chest pain, abdominal pain, tingling or numbness.Patient also denies fever or chills overnight Exam Narrative Exam Narrative: HENMT: Head is atraumatic, normocephalic, no lymphadenopathy. Facial structures with normal appearance Neck: Normal ROM, no meningeal signs Neuro:alert and oriented to self, person, place, time and situation. No neurological focal deficit, PERRLA Chest:Chest is symmetrical and normal appearance Resp: Normal respiratory pattern, speaks in full long sentences, unlabored breathing, clear lung bilaterally Cardio: regular rhythm, S1, S2, no murmur, capillary refill<3 sec., bilateral r adial and dorsalis pedis pulses are positive GI: Abdomen is not distended, soft and non tender, bowel sounds are present : Negative Costovertebral angle tenderness Back/spine/Pelvis: No back tenderness, normal alignment Integumentary: No skin lesions or rash on exposed skin Extremities: strength 5/5 to bilateral lower and upper extremities Psych: RASS 0, congruent mood and normal to elated affect. Objective Last Vital Signs Temp 36.8 C 08/02/23 07:29 Pulse 79 08/02/23 08:53 Resp 16 08/02/23 08:53 BP 192/100 H 08/02/23 10:51 Pulse Ox 96 08/02/23 08:53 Laboratory Results - last 24 hr 08/01/23 08/01/23 08/01/23 12:00 12:20 12:20 WBC 8.17 RBC 4.27 Hgb 13.0 Hct 39.4 MCV 92 MCH 30.4 MCHC 33.0 RDW 13.4 Plt Count 238 MPV 10.4 Immature Gran % 0.4 Neutrophils % 76.6 Lymphocytes % 15.2 Monocytes % 5.9 Eosinophils % 1.3 Basophils % 0.6 Nucleated RBC % 0.0 Absolute Neutrophils 6.26 Absolute Lymphocytes 1.24 Absolute Monocytes 0.48 Absolute Eosinophils 0.11 Absolute Basophils 0.05 APTT 23.0 L Sodium 141 Potassium 3.8 Chloride 104 Carbon Dioxide 25.9 Anion Gap 11.1 H BUN 22 H Creatinine 1.0 Est GFR (CKD-EPI 2020) 55.90 Glucose 179 H Calcium 9.7 Magnesium 1.8 Total Bilirubin 0.7 AST 22 ALT 30 Alkaline Phosphatase 105 Troponin I < 50 Total Protein 7.8 Albumin 3.8 TSH 2.59 Cancelled 08/01/23 08/02/23 15:45 06:14 WBC 8.10 RBC 3.93 Hgb 11.8 Hct 36.2 MCV 92 MCH 30.0 MCHC 32.6 RDW 13.4 Plt Count 220 MPV 10.3 Immature Gran % 0.4 Neutrophils % 70.6 Lymphocytes % 19.4 Monocytes % 7.4 Eosinophils % 1.6 Basophils % 0.6 Nucleated RBC % 0.0 Absolute Neutrophils 5.72 Absolute Lymphocytes 1.57 Absolute Monocytes 0.60 Absolute Eosinophils 0.13 Absolute Basophils 0.05 APTT Sodium 141 Potassium 4.0 Chloride 106 Carbon Dioxide 25.1 Anion Gap 9.9 BUN 18 Creatinine 0.9 Est GFR (CKD-EPI 2020) 63.43 Glucose 138 H Calcium 9.5 Magnesium Total Bilirubin AST ALT Alkaline Phosphatase Troponin I < 50 Total Protein Albumin TSH Time Spent with Patient Time Spent with Patient: >50 minutes Time was spent: preparing to see the patient(eg.review tests), obtaining and/or reviewing separately otained hiistory, ordering medications,tests, procedures, referring, communicating with other health care management associate, indepentently interpreting results, counseling the patient and care coordination
[2023-08-02] MEDS: Spironolactone 25 MG TAB PO (12:52)
--- NOTE | 2023-08-02 15:32 | PHA.REVIEW2 ---
Pharmacy Admission Review Admission Clinical Review Admission Pharmacy Review: Hypertensive urgency (Acute) Tetracyclines Allergy (Unknown, Verified 08/01/23 12:15) Other (See Comment) Resuscitation Status Full Code Height 5 ft 5 in Weight 78.471 kg Pharmacy Admission Review Renal Dosing Renal Dosing: BUN 18 mg/dL (7-18) 08/02/23 06:14 Creatinine 0.9 mg/dL (0.55-1.02) 08/02/23 06:14 Medications needing adjustments: Reviewed (CrCl 44.14 mL/min) List of meds needing interventions: Current meds okay Anticoagulation Anticoagulation: Hgb 11.8 g/dL (11.2-15.7) 08/02/23 06:14 Hct 36.2 % (36.0-46.0) 08/02/23 06:14 Plt Count 220 10^3/uL (130-400) 08/02/23 06:14 Creatinine 0.9 mg/dL (0.55-1.02) 08/02/23 06:14 DVT Prophylaxis: Reviewed Medications: Enoxaparin (40mg q24h) Relevant Labs Relevant Labs: Sodium 141 mmol/L (136-145) 08/02/23 06:14 Potassium 4.0 mmol/L (3.5-5.1) 08/02/23 06:14 Chloride 106 mmol/L (98-107) 08/02/23 06:14 Magnesium 1.8 mg/dL (1.8-2.4) 08/01/23 12:20 Electrolytes, C-Reactive P, ESR: Reviewed (Glucose 138) Cardiac Review Cardiac Review: Troponin I < 50 ng/L (< or =60) 08/01/23 15:45 Blood Pressure 163/77 1443 Blood Pressure 185/83 1344 Blood Pressure 183/78 1249 Blood Pressure 192/100 1051 Blood Pressure 190/102 0853 Blood Pressure 190/100 0822 Blood Pressure 184/85 0748 Blood Pressure 206/81 0729 BP, HR, EF%: Reviewed (HR WNL, BP 163/77) QTc Review QTc: Reviewed (473 08/01/23) IV to PO Switch IV Medications: Reviewed (No IV meds at this time) Home Meds Home Med List reviewed: Reviewed Current Meds Current Medication Order Review: Reviewed Comments: Spironolactone initiated, if patient responds well provider plans on adding a daily dose. Other possibility per progress note is clonidine patch.
[2023-08-02] MEDS: Melatonin 3 MG TAB PO (21:07)
[2023-08-03 02:49] VITALS: BP 163/78; PULSE 77; RESP 18; TEMP 36.7; O2SAT 97
[2023-08-03 06:33] LABS: Abs Immature Grans 0.03 10^3/uL (0.0-0.06); Absolute Basophil Count 0.04 10^3/uL (0.0-0.2); Absolute Eosinophil Count 0.15 10^3/uL (0.0-0.7); Absolute Lymphocyte Count 1.51 10^3/uL (1.2-3.4); Absolute Monocyte Count 0.67 10^3/uL (0.1-0.8); Absolute Neutrophil Count 5.67 10^3/uL (1.2-6.7); Basophils % 0.5; Eosinophils % 1.9; HCT 35.3 % (36.0-46.0); HGB 11.8 g/dL (11.2-15.7); Immature Grans % 0.4; Lymphocytes % 18.7; MCH 30.9 pg (27.0-33.0); MCHC 33.4 % (32.0-36.0); MCV 92 fL (80-95); MPV 10.6 fL (8.0-11.0); Monocytes % 8.3; Neutrophils % 70.2; Platelet Count 240 10^3/uL (130-400); RBC 3.82 10^6/uL (3.93-5.22); RDW 13.7 % (11.7-14.6); RDW-SD 46.3 fL; WBC 8.07 10^3/uL (4.4-10.8)
[2023-08-03 06:58] LABS: Anion Gap 9.5 mmol/L (3-11); BUN 22 mg/dL (7-18); CO2 23.5 mmol/L (21.0-32.0); CREATININE 0.8 mg/dL (0.55-1.02); Calcium 9.1 mg/dL (8.5-10.1); Chloride 107 mmol/L (98-107); Estimated GFR 73.06 (mL/min/1.73m2); Glucose 128 mg/dL (74-106); Potassium 4.1 mmol/L (3.5-5.1); Sodium 140 mmol/L (136-145)
[2023-08-03 07:46] VITALS: BP 190/83; PULSE 73; RESP 14; TEMP 36.6; O2SAT 98
[2023-08-03] MEDS: Normal Saline Flush 10 ML SYR IVP (07:55)
[2023-08-03] MEDS: Spironolactone 25 MG TAB PO (07:56)
[2023-08-03] MEDS: Lisinopril 20 MG TAB 40 MG PO (07:56)
[2023-08-03] MEDS: Multivitamin TAB 1 TAB PO (07:57)
[2023-08-03] MEDS: Atenolol 50 MG TAB PO (07:57)
[2023-08-03] MEDS: amLODIPine 5 MG TAB PO (07:57)
[2023-08-03] MEDS: Aspirin 81 MG CHEW PO (07:57)
[2023-08-03] MEDS: Enoxaparin 40 MG/0.4 ML SYR SC (07:58)
[2023-08-03] MEDS: Cyanocobalamin 500 MCG TAB 250 MCG PO (07:58)
[2023-08-03] MEDS: Omeprazole 20 MG CAPCR PO (07:58)
[2023-08-03] MEDS: Magnesium Oxide 400 MG TAB 200 MG PO (07:58)
--- NOTE | 2023-08-03 09:15 | PDOC.CMPRO ---
Date of service: 08/03/23 Time of Service: 09:15 SDOH(Care Management) Screening Will the Patient Participate in the Screening?: Yes Do you worry about having a steady place to live?: no In the past 12 months, have you had to go without electric, gas, oil or water in your home?: no Have you or anyone in your house had to go without enough food to eat?: no Has lack of transportation kept you from medical appointments or from doing things needed for daily living?: no Has anyone in your support network made you feel unsafe for any reason?: no
--- NOTE | 2023-08-03 09:22 | DSE_ITS ---
Date of service: 08/03/23 Time of Service: 09:22 DS: Diagnosis Discharge Diagnosis (1) Hypertensive urgency: Status: Acute (2) Anxiety: Status: Chronic (3) Gastroesophageal reflux disease: Status: Chronic (4) Diabetes: Status: Chronic (5) On deep vein thrombosis (DVT) prophylaxis: Status: Acute Discharge Plan Disposition Patient Disposition: Home Condition: Improving Discharge Details Reason For Visit: hypertensive urgency Admit Date/Time: 08/01/23 17:40 Admit Provider: Usha Carmona Attending Provider: Usha Carmona Primary Care Provider: Brannon Rico Hospital Course Hospital Course: This 83-year-old female patient with a past medical history of hypertension and anxiety presented in the ED at [facility] on 08/01/2023 for evaluation of complaints of elevated blood pressure. The patient mentioned checking her blood pressure daily and noticing that the values were significantly elevated with a systolic of over 200. The patient mentioned feeling lightheaded but denied chest pain or shortness of breath, numbness or tingling. It was reported that the patient was slightly confused at the time of presentation. Patient mention being compliant with medication as prescribed; during her last office visit blood pressure was noted to be 189/95. In the ED her workup showed normal EKG without ischemic changes, negative troponin, and a normal head CT without any acute intracranial processes; creatinine was 1.0 and BUN 22. She received IV metoprolol, labetalol and hydralazine IV and an extra dose of lisinopril in addition to lorazepam without any significant improvement of her symptoms initially, but later on her blood pressure reading was 174/84. The hospitalist service was consulted and the patient was admitted for observation for hypertensive urgency in the setting of poorly controlled blood pressure, confusion and lightheadedness. During her stay the patient was treated with an increased dose of lisinopril, her home dose of atenolol was maintained, and amlodipine 5 mg. The patient's blood pressure remained in the range of 190s/100s. Telemetry read NSR in the 70's. Consideration was given to either start clonidine patch to treat both her anxiety and the hypertension versus spironolactone. Spironolactone was initiated and the patient's blood pressure went down to 141/85 within 24 hours. The pa tient would most likely benefit from the patch form of the clonidine to treat both the hypertension and anxiety, thisshered decision making is left to the primary care provider with discussion with the patient as dosage adjustement and or substitution will be required.The patient will be discharge home and will have to follow-up with her PCP within a week. The patient will have to complete a BMP prior to seen the PCP. The results of the BMP to be forwarded to the patient PCP. Discussed with Dr. Carmona Home Meds and New Rx's Prescriptions: New lisinopril 20 mg Tablet 40 mg PO DAILY Qty: 60 0RF amlodipine 5 mg Tablet 5 mg PO DAILY Qty: 30 0RF spironolactone 25 mg Tablet 25 mg PO DAILY Qty: 30 0RF Continued ASPIRIN 81 MG tablet 81 mg PO DAILY multivitamin [Daily Multi-Vitamin] 1 EACH tablet 1 tab PO DAILY cyanocobalamin (vitamin B-12) [Vitamin B-12] 500 MCG tablet 0.5 tab PO DAILY magnesium oxide 250 MG tablet 1 tab PO DAILY atenolol 50 mg tablet See Rx Instructions .ROUTE .COMPLEX Qty: 90 3RF Dose Instruction: TAKE 1 TABLET BY MOUTH DAILY Rx Instructions: TAKE 1 TABLET BY MOUTH DAILY omeprazole 20 mg capsule,delayed release(DR/EC) 20 mg PO DAILY Patient Comments: TAKE 1 CAPSULE BY MOUTH DAILY Discontinued lisinopril 20 mg tablet See Rx Instructions .ROUTE .COMPLEX Qty: 90 4RF Dose Instruction: TAKE 1 TABLET BY MOUTH DAILY Rx Instructions: TAKE 1 TABLET BY MOUTH DAILY Discharge Instructions Instructions: Hypertension in the Older Adult (DC) Stand Alone Forms: Nursing Discharge Form Referrals: Brannon Rico NP [Primary Care Provider] - 08/10/23 12:40 pm () Activity:: Activity as Tolerated Equipment/Supplies:: No Equipment Needed Diet:: heart healthy Discharge Orders Discharge Orders: Discharge Order (Routine); Ordered 08/03/23 Ordered By: Karen Chairez Other Ambulatory Orders: Basic Metabolic Panel (Routine) Timeframe: [id number] Facility: [facility] - Location: Laboratory Outpatient - [facility] Ordered By: Karen Chairez DS: Summary Time Spent with Patient providing and/or coordinating discharge services: Greater than 30 minutes Status at Discharge Functional status at discharge: independent ambulation Overall status at discharge: patient is progressing back to baseline Mental Status: mental status grossly normal Speech and Movement: speech and movement normal Mood: congruent mood Affect: normal affect Quality:SDOH Health Related Social Needs: No Data to Display Exam Narrative Exam Narrative: Patient in chair w/o acute distress, no further headache HENMT: Facial structures with normal appearance Neck: Normal ROM, no meningeal signs Neuro:alert and oriented to self, person, place, time and situation. No neurological focal deficit, PERRLA Chest:Chest is symmetrical and normal appearance Resp: Normal respiratory pattern, speaks in full long sentences, clear lung bilaterally Cardio: regular rhythm, S1, S2, no murmur,bilateral radial and dorsalis pedis pulses are positive GI: Abdomen is not distended, soft and non tender, bowel sounds are present : Negative Costovertebral angle tenderness Integumentary: No skin lesions or rash Extremities: strength 5/5 to bilateral lower and upper extremities Psych: RASS 0, congruent to anxious mood and normal to elated affect. Psych Mental Status: mental status grossly normal Speech and Movement: speech and movement normal Mood: congruent mood Affect: normal affect DS: Data Vitals/I&O Vitals and I&O: Vital Signs Temperature 36.6 C 08/03/23 07:46 Temperature Source Tympanic 08/03/23 07:46 Pulse 73 08/03/23 07:46 Pulse Rhythm Regular 08/03/23 00:58 Pulse 80 08/01/23 17:56 Respiratory Rate 14 08/03/23 07:46 Respiratory Effort Normal 08/03/23 00:58 Respiratory Depth Normal 08/03/23 00:58 Respiratory Pattern Normal 08/03/23 00:58 Blood Pressure 190/83 H 08/03/23 07:46 Blood Pressure Mean 146 08/01/23 17:56 Pulse Oximetry 98 08/03/23 07:46 Oxygen Delivery Method Room Air 08/03/23 07:46 Oxygen Flow Rate 0 08/03/23 07:46 Pain Level 0 08/03/23 02:49 Comment nurse notified about BP 08/02/23 14:43 Intake & Output 08/02/23 08/02/23 08/03/23 11:59 23:59 11:59 Intake Total 180 / 360 180 / 360 Balance 180 / 360 180 / 360 Intake: Oral 180 / 360 180 / 360 Other: Urine Color Yellow Urine Appearance Clear Clear Comment per pt voided x1 per pt, voided x2 pT goes to the bathroom independently. Voiding Methods Toilet Toilet Toilet Data Completed and Pending Labs on day of discharge: Labs from last 24 hours 08/03/23 05:43 WBC 8.07 RBC 3.82 L Hgb 11.8 Hct 35.3 L MCV 92 MCH 30.9 MCHC 33.4 RDW 13.7 Plt Count 240 MPV 10.6 Immature Gran % 0.4 Neutrophils % 70.2 Lymphocytes % 18.7 Monocytes % 8.3 Eosinophils % 1.9 Basophils % 0.5 Nucleated RBC % 0.0 Absolute Neutrophils 5.67 Absolute Lymphocytes 1.51 Absolute Monocytes 0.67 Absolute Eosinophils 0.15 Absolute Basophils 0.04 Sodium 140 Potassium 4.1 Chloride 107 Carbon Dioxide 23.5 Anion Gap 9.5 BUN 22 H Creatinine 0.8 Est GFR (CKD-EPI 2020) 73.06 Glucose 128 H Calcium 9.1 Magnesium 2.0 PFSH All Active Problems (Updated 08/02/23 @ 18:40 by Karen Chairez APRN) On deep vein thrombosis (DVT) prophylaxis (Acute) Hypertensive urgency (Acute) Hypertensive urgency (Acute) Anxiety (Chronic) Diabetes (Chronic) Vitamin D deficiency (Acute) Grief counseling (Acute) Advanced directives, counseling/discussion (Acute) 09/2021 - States she has. We do not have on file. She is unable to articulate what is in her directive. Has been asked on numerous occasions to bring in a copy. States Maribel Toledo is her person Essential hypertension (Chronic 09/27/13) Gastroesophageal reflux disease (Chronic 10/01/12) Neg. 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 Paternal Grandfather , 75 Asthma Maternal Grandmother , 54 No problems noted. Paternal Grandmother , 62 Stroke Brother No problems noted. Son No problems noted. Son No problems noted. Daughter No problems noted. Daughter No problems noted. Social History Smoking/Tobacco Use Status: Never Second Hand Exposure: No Smoking risk assessment performed?: Yes Alcohol Intake: current Alcohol Intake frequency: a few times a month Alcohol type: hard liquor Drug use: Never Substance use type: does not use Counseling provided: none Caregiver/Support person: No Household members: spouse Housing: house Communication Needs: None Do you need help understanding health information?: Rarely Pets and animals: Yes Pets and animals: cat(s) Sexually active: No Do you think of yourself as: straight/heterosexual Current gender identity: female What is your relationship status?: How often do you talk on the phone with friends or family?: three or more times per week How often do you get together with friends or relatives?: once per week How often do you attend voodoo or anabaptist services?: decline to answer Do you belong to any clubs or organized social groups?: no Panel score (0-1 are the most socially isolated patients): 2 What type of physical activity do you participate in: other Details: chores Duration: 60-90 minutes/day Frequency: daily Niurka/Mandaeism: Jainism Special niurka needs: No Seatbelt use: always Drive intox or ride w/intox hazmat tanker driver: No Do you feel safe at home: Yes Do you feel safe in your relationship?: Yes Additional Social history: been for 63years lives with . Sony RN 08/01/23 Time Spent with Patient Time Spent with Patient: >85 minutes Time was spent: preparing to see the patient(eg.review tests), obtaining and/or reviewing separately otained hiistory, ordering medications,tests, procedures, referring, communicating with other health memory care director, indepentently interpreting results, counseling the patient and care coordination
[2023-08-03 09:42] VITALS: BP 145/81
[2023-08-03 13:07] VITALS: BP 140/81
--- NOTE | 2023-08-03 13:46 | CMDISCH_ITS ---
Date of service: 08/03/23 Time of Service: 13:47 LACE Index Scoring Tool Questions: Length of Stay (in days): 2 Was the patient admitted via the E.D.?: Yes Comorbidities: Diabetes w/o Complication and Any Tumor E.D. Visits: 1 Answers: Total Score: 9 Risk of Readmission: Low Risk Care Management Discharge Plan Reason for Hospitalization: hypertensive emergency Discharge Plan: Pema will be discharged home with no new services. She will follow up with her community providers and plan of care and transport with . Patient/Family Education Needs: Review of discharge instructions, activity, di et, medications, limitations, follow up plan, discuss Ask Me Three [facility] Health Related Social Needs: No Data to Display
== END 2023-08-03 15:41 | disposition home or self-care (01) ==
LOC: ER 17:57 → MS 18:22
PROVIDERS: Nurse Practitioner Acute Care; Admitting Provider Internal Medicine; Emergency Provider Student in an Organized Health Care Education/Training Program; PCP Nurse Practitioner Family; Visit Provider Internal Medicine
DX: I16.0 Hypertensive urgency (principal); F41.9 Anxiety disorder, unspecified; K21.9 Gastro-esophageal reflux disease without esophagitis; E11.9 Type 2 diabetes mellitus without complications; E55.9 Vitamin D deficiency, unspecified; E78.5 Hyperlipidemia, unspecified; I10 Essential (primary) hypertension; R00.2 Palpitations; R01.1 Cardiac murmur, unspecified; Z85.43 Personal history of malignant neoplasm of ovary; Z79.899 Other long term (current) drug therapy
CPT/HCPCS: 00123; 36415; 80048; 80053; 93005; 96372; 96374; 96375; 99285; J1650; 70450; 71045; 83735; 84443; 84484; 85025; 85730; 93010; 99222; 99232; 99239; G0378; J0360; J1920; J2060

== ENCOUNTER 2023-08-07 15:02 | Outpatient (CLI) | payer MEDICARE, SELFPAY ==
[2023-08-07 14:18] LABS: Anion Gap 12.2 mmol/L (3-11); BUN 51 mg/dL (7-18); CO2 24.8 mmol/L (21.0-32.0); CREATININE 1.2 mg/dL (0.55-1.02); Calcium 9.2 mg/dL (8.5-10.1); Chloride 106 mmol/L (98-107); Estimated GFR 44.91 (mL/min/1.73m2); Glucose 135 mg/dL (74-106); Potassium 3.6 mmol/L (3.5-5.1); Sodium 143 mmol/L (136-145)
== END 2023-08-07 15:03 | disposition home or self-care (01) ==
LOC: LBO 15:02
PROVIDERS: PCP Nurse Practitioner Family; Visit Provider Nurse Practitioner Acute Care
DX: I16.0 Hypertensive urgency (principal)
CPT/HCPCS: 36415; 80048

== ENCOUNTER 2023-08-18 20:47 | Outpatient (REF) | payer MEDICARE, SELFPAY ==
[2023-08-18 21:35] LABS: Anion Gap 8.8 mmol/L (3-11); BUN 22 mg/dL (7-18); CO2 24.2 mmol/L (21.0-32.0); Calcium 9.8 mg/dL (8.5-10.1); Chloride 107 mmol/L (98-107); Glucose 121 mg/dL (74-106); Potassium 4.5 mmol/L (3.5-5.1); Sodium 140 mmol/L (136-145)
== END 2023-08-18 20:48 | disposition home or self-care (01) ==
LOC: LBN 20:47
PROVIDERS: PCP Nurse Practitioner Family; Referring Provider Nurse Practitioner Family; Visit Provider Nurse Practitioner Family
DX: I10 Essential (primary) hypertension (principal); I16.0 Hypertensive urgency; R79.89 Other specified abnormal findings of blood chemistry
CPT/HCPCS: 80048

== ENCOUNTER 2025-02-19 15:08 | Outpatient (REF) | payer MEDICARE, SELFPAY ==
[2025-02-19 17:58] LABS: Anion Gap 9.1 mmol/L (3-11); BUN 29 mg/dL (7-18); CO2 25.9 mmol/L (21.0-32.0); Calcium 10.4 mg/dL (8.5-10.1); Chloride 104 mmol/L (98-107); Estimated GFR 49.55 (mL/min/1.73m2); Glucose 125 mg/dL (74-106); Potassium 5.1 mmol/L (3.5-5.1); Sodium 139 mmol/L (136-145); Vitamin D 25 Total 57 ng/mL (30-100)
[2025-02-20 09:24] LABS: Lab Add On Test DONE
[2025-02-21 12:39] LABS: Lab Add On Test DONE
== END 2025-02-19 15:09 | disposition home or self-care (01) ==
LOC: LBN 15:08
PROVIDERS: PCP Nurse Practitioner Family; Visit Provider Nurse Practitioner Family
DX: E83.52 Hypercalcemia (principal); I10 Essential (primary) hypertension
CPT/HCPCS: 80048; 80076; 82306; 83970

== ENCOUNTER 2025-02-27 00:24 | Outpatient (CLI) | payer MEDICARE, SELFPAY ==
[2025-02-27 14:15] LABS: Anion Gap 8.4 mmol/L (3-11); BUN 32 mg/dL (7-18); CO2 25.6 mmol/L (21.0-32.0); Calcium 10.0 mg/dL (8.5-10.1); Chloride 107 mmol/L (98-107); Estimated GFR 40.55 (mL/min/1.73m2); Glucose 134 mg/dL (74-106); Potassium 4.8 mmol/L (3.5-5.1); Sodium 141 mmol/L (136-145)
== END 2025-02-27 00:25 | disposition home or self-care (01) ==
LOC: LOS 00:24
PROVIDERS: PCP Nurse Practitioner Family; Visit Provider Nurse Practitioner Family
DX: E83.52 Hypercalcemia (principal)
CPT/HCPCS: 36415; 80048